=== PATIENT | male | born 1995 | race Two or more races ===

== ENCOUNTER 2016-09-02 00:41 | Emergency (ER) | payer SELFPAY ==
[2016-09-02] MEDS ORDERED: OXYCODONE-ACETAMINOPHEN 5-325 MG TABLET PO ONE (02:23)
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
[2016-09-02] MEDS ORDERED: HYDROCODONE/ACETAMINOPHEN 5-325 MG TABLET PO ONE (04:04)
[2016-09-02] MEDS ORDERED: LIDOCAINE 1% INJ-PF (10 MG/ML) 30 ML SDV INJ ONE (04:04)
[2016-09-02] MEDS ORDERED: DIPH/PERTUSS(ACELL)/TETANUS VAC/PF 0.5 ML SYR (>=10YO) IM ONE (04:06)
[2016-09-02] MEDS ORDERED: HYDROCODONE/ACETAMINOPHEN 5-325 MG 6 TAB/DSPK PO PRN (05:20)
[2016-09-02 05:57] VITALS: BP 144/78
== END 2016-09-02 05:55 | disposition home or self-care (01) ==
LOC: ER 00:41
PROC: 08QPXZZ Repair Left Upper Eyelid, External Approach (ICD-10-PCS; principal; 2016-09-02)
DX: S01.112A Laceration without foreign body of left eyelid and periocular area, initial encounter (principal); Y04.2XXA Assault by strike against or bumped into by another person, initial encounter
CPT/HCPCS: 12011; 99284; 90471; 70486; 90715; J3490

== ENCOUNTER 2016-09-07 12:20 | Emergency (ER) | payer SELFPAY ==
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
[2016-09-07 13:05] VITALS: BP 135/68
== END 2016-09-07 13:09 | disposition home or self-care (01) ==
LOC: ER 12:20
DX: Z48.02 Encounter for removal of sutures (principal)

== ENCOUNTER 2016-09-08 13:28 | Emergency (ER) | payer SELFPAY ==
[2016-09-08 13:59] VITALS: BP 135/72
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
== END 2016-09-08 14:46 | disposition home or self-care (01) ==
LOC: ER 13:28
DX: H43.392 Other vitreous opacities, left eye (principal)
CPT/HCPCS: 99283

== ENCOUNTER 2016-11-08 17:43 | Emergency (ER) | payer SELFPAY ==
[2016-11-08] MEDS ORDERED: FENTANYL CITRATE INJ/PF 100 MCG/2 ML AMPUL ONE (18:05)
[2016-11-08] MEDS ORDERED: ONDANSETRON HCL INJ/PF 4 MG/2 ML SDV ONE (18:18)
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
[2016-11-08 18:33] VITALS: BP 150/86
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
[2016-11-08 19:19] LABS: ABSOLUTE BASOPHILS # (AUTO) 0.1 10^3/uL (0.0-0.2); ABSOLUTE EOSINOPHILS # (AUTO) 0.1 10^3/uL (0.0-0.6); ABSOLUTE LYMPHOCYTES (AUTO) 4.2 10^3/uL (0.5-4.7); ABSOLUTE MONOCYTES (AUTO) 0.6 10^3/uL (0.1-1.4); BASOPHILS % (AUTO) 0.4 % (0-2); HEMATOCRIT 39.2 % (37.9-51.0); HEMOGLOBIN 13.2 g/dL (13.5-17.0); HGB HCT DIFFERENCE 0.4; LYMPHOCYTES % (AUTO) 32.2 % (13-45); MEAN CORPUSCULAR HEMOGLOBIN 30.4 pg (27.0-33.4); MEAN CORPUSCULAR HGB CONC 33.6 g/dL (32.0-36.0); MEAN CORPUSCULAR VOLUME 91 fl (80-97); MONOCYTES % (AUTO) 4.3 % (3-13); RED BLOOD COUNT 4.33 10^6/uL (4.35-5.55); RED CELL DISTRIBUTION WIDTH 12.7 % (11.5-14.0); SEGMENTED NEUTROPHILS % (AUTO) 62.1 % (42-78); WHITE BLOOD COUNT 12.9 10^3/uL (4.0-10.5)
[2016-11-08 19:28] LABS: ALANINE AMINOTRANSFERASE 718 U/L (21-72); ALBUMIN 3.4 g/dL (3.5-5.0); ALKALINE PHOSPHATASE 96 U/L (38-126); ANION GAP 10 (5-19); BILIRUBIN,DIRECT 0.3 mg/dL (0.0-0.4); BILIRUBIN,TOTAL 0.4 mg/dL (0.2-1.3); BLOOD UREA NITROGEN 14 mg/dL (7-20); CALCIUM 8.3 mg/dL (8.4-10.2); CARBON DIOXIDE 23 mmol/L (22-30); CHLORIDE 107 mmol/L (98-107); CREATININE RESULT 1.35 mg/dL (0.52-1.25); GLUCOSE 165 mg/dL (75-110); POTASSIUM 3.7 mmol/L (3.6-5.0); SODIUM 140.1 mmol/L (137-145); TOTAL PROTEIN 5.8 g/dL (6.3-8.2)
[2016-11-08 19:30] LABS: ALCOHOL < 10 mg/dL (NONE DETECTED); CREATINE KINASE 414 U/L (55-170); LIPASE 323.5 U/L (23-300)
[2016-11-08 19:33] LABS: PROTHROMBIN TIME 13.2 SEC (11.4-15.4)
[2016-11-08 19:34] LABS: ASPARTATE AMINO TRANSFERASE 748 U/L (17-59)
[2016-11-08 19:36] LABS: D-DIMER 3.75 ug/mL (0.00-0.50)
[2016-11-08 19:37] LABS: CREATINE KINASE MB 1.67 ng/mL (<4.55)
== END 2016-11-08 18:40 | disposition short-term general hospital (02) ==
LOC: ER 17:43
DX: S72.351B Displaced comminuted fracture of shaft of right femur, initial encounter for open fracture type I or II (principal); S82.391B Other fracture of lower end of right tibia, initial encounter for open fracture type I or II; S82.451B Displaced comminuted fracture of shaft of right fibula, initial encounter for open fracture type I or II; V29.9XXA Motorcycle rider (driver) (passenger) injured in unspecified traffic accident, initial encounter
CPT/HCPCS: 36415; 71010; 80053; 80307; 82550; 82553; 83690; 83880; 85025; 85379; 85610; 86850; 86900; 86901; 99291

== ENCOUNTER 2017-07-06 14:56 | Emergency (ER) | payer SELFPAY ==
[2017-07-06] MEDS ORDERED: IBUPROFEN 800 MG TABLET PO ONE (16:05)
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
[2017-07-06 16:47] LABS: ABSOLUTE EOSINOPHILS # (AUTO) 0.1 10^3/uL (0.0-0.6); ABSOLUTE LYMPHOCYTES (AUTO) 1.5 10^3/uL (0.5-4.7); ABSOLUTE MONOCYTES (AUTO) 0.9 10^3/uL (0.1-1.4); ABSOLUTE NEUT (AUTO) 6.1 10^3/uL (1.7-8.2); BASOPHILS % (AUTO) 0.3 % (0-2); EOSINOPHILS % (AUTO) 0.7 % (0-6); HEMOGLOBIN 16.4 g/dL (13.5-17.0); LYMPHOCYTES % (AUTO) 17.1 % (13-45); MEAN CORPUSCULAR HEMOGLOBIN 29.2 pg (27.0-33.4); MEAN CORPUSCULAR HGB CONC 34.1 g/dL (32.0-36.0); MEAN CORPUSCULAR VOLUME 86 fl (80-97); MONOCYTES % (AUTO) 10.5 % (3-13); PLATELET COUNT 259 10^3/uL (150-450); RED CELL DISTRIBUTION WIDTH 14.4 % (11.5-14.0); SEGMENTED NEUTROPHILS % (AUTO) 71.4 % (42-78); TOTAL CELLS COUNTED % (AUTO) 100 %; WHITE BLOOD COUNT 8.6 10^3/uL (4.0-10.5)
[2017-07-06] MEDS ORDERED: HYDROCODONE/ACETAMINOPHEN 5-325 MG TABLET PO ONE (16:58)
[2017-07-06 17:10] LABS: ANION GAP 9 (5-19); BLOOD UREA NITROGEN 13 mg/dL (7-20); CALCIUM 9.6 mg/dL (8.4-10.2); CARBON DIOXIDE 27 mmol/L (22-30); CHLORIDE 106 mmol/L (98-107); GLUCOSE 81 mg/dL (75-110); POTASSIUM 4.3 mmol/L (3.6-5.0); SODIUM 141.7 mmol/L (137-145)
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
[2017-07-06 20:14] VITALS: BP 124/70
== END 2017-07-06 20:12 | disposition home or self-care (01) ==
LOC: ER 14:56
DX: M61.9 Calcification and ossification of muscle, unspecified (principal); M79.651 Pain in right thigh; M79.89 Other specified soft tissue disorders
CPT/HCPCS: 36415; 76882; 80048; 85025; 99284

== ENCOUNTER 2017-10-05 11:12 | Emergency (ER) | payer SELFPAY ==
[2017-10-05] MEDS ORDERED: ACETAMINOPHEN 325 MG TABLET PO ONE (11:28)
[2017-10-05] MEDS ORDERED: ONDANSETRON 4 MG TAB.RAPDIS PO ONE (11:28)
--- NOTE | 2017-10-05 11:30 | ER Document Report ---
ED Medical Screen (RME) - General Chief Complaint: Leg Pain Stated Complaint: RIGHT LEG PAIN/VOMITING Time Seen by Provider: 10/05/17 11:27 Notes: RAPID MEDICAL EVALUATION DISCLOSURE I have seen this patient as part of a Rapid Medical Evaluation and, if applicable, placed any initially appropriate orders. The patient will be seen and fully evaluated, including a full history and physical exam, by a provider ( in Main ED or Fast Track) when a room becomes available. 22-year-old male PMH pancreatitis here with complaints of nausea vomiting several episodes since yesterday (without abdominal pain or diarrhea). He is not tried taking anything for his symptoms. He has a history of pancreatitis in the past after "a stent procedure" in his abdomen. He also complains of some right leg pain ongoing for the past day or so but denies any traumatic injury/impact. He does have a history of leg fractures and states "I have rods in my entire right leg". EXAM No abdominal TTP Minimal TTP of distal right tibia without overlying skin changes TRAVEL OUTSIDE OF THE [place] IN LAST 30 DAYS: No - Related Data Allergies/Adverse Reactions: No Known Allergies Allergy (Verified 10/05/17 11:13) Past Medical History Renal/ Medical History: Denies: Hx Peritoneal Dialysis Past Surgical History: Reports: Hx Abdominal Surgery, Hx Orthopedic Surgery Physical Exam - Vital signs Vitals: Temp Pulse Resp BP Pulse Ox 98.4 F 92 20 139/66 H 98 10/05/17 11:20 10/05/17 11:20 10/05/17 11:20 10/05/17 11:20 10/05/17 11:20 Course - Vital Signs Vital signs: Temp Pulse Resp BP Pulse Ox 98.4 F 92 20 139/66 H 98 10/05/17 11:20 10/05/17 11:20 10/05/17 11:20 10/05/17 11:20 10/05/17 11:20
[2017-10-05 12:39] LABS: ABSOLUTE EOSINOPHILS # (AUTO) 0.1 10^3/uL (0.0-0.6); ABSOLUTE LYMPHOCYTES (AUTO) 1.1 10^3/uL (0.5-4.7); ABSOLUTE MONOCYTES (AUTO) 0.9 10^3/uL (0.1-1.4); ABSOLUTE NEUT (AUTO) 3.1 10^3/uL (1.7-8.2); BASOPHILS % (AUTO) 0.5 % (0-2); EOSINOPHILS % (AUTO) 1.1 % (0-6); HEMATOCRIT 48.2 % (37.9-51.0); HEMOGLOBIN 16.6 g/dL (13.5-17.0); LYMPHOCYTES % (AUTO) 20.9 % (13-45); MEAN CORPUSCULAR HEMOGLOBIN 29.9 pg (27.0-33.4); MEAN CORPUSCULAR HGB CONC 34.5 g/dL (32.0-36.0); MEAN CORPUSCULAR VOLUME 87 fl (80-97); PLATELET COUNT 196 10^3/uL (150-450); RED BLOOD COUNT 5.55 10^6/uL (4.35-5.55); RED CELL DISTRIBUTION WIDTH 13.5 % (11.5-14.0); SEGMENTED NEUTROPHILS % (AUTO) 59.5 % (42-78); TOTAL CELLS COUNTED % (AUTO) 100 %; WHITE BLOOD COUNT 5.2 10^3/uL (4.0-10.5)
--- NOTE | 2017-10-05 12:41 | RADIOLOGY REPORT (SQ) ---
EXAM DESCRIPTION: TIBIA FIBULA RIGHT COMPLETED DATE/TIME: 10/05/2017 12:14 pm REASON FOR STUDY: TTP, eval hardware placement at distal tibfib COMPARISON: 11/08/2016 NUMBER OF VIEWS: Two views. TECHNIQUE: Two radiographic images acquired of the right tibia and fibula to include the knee and an kle in at least one projection. LIMITATIONS: None. FINDINGS: MINERALIZATION: Normal. BONES: Nonunion fracture of the distal tibia, however there is an IM misti present with distal traversi ng screws. No hardware failure. No finding to suggest loosening. Old posttraumatic changes of the proximal and distal fibula. SOFT TISSUES: No obvious swelling or foreign body. OTHER: No other significant finding. IMPRESSION: No hardware failure or suggestion of infection. 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 TECHNICAL DOCUMENTATION: JOB ID: [id number] [employer]- All Rights Reserved Reading location - IP/workstation name: [email or web address]
[2017-10-05 12:59] LABS: ALANINE AMINOTRANSFERASE 91 U/L (21-72); ALKALINE PHOSPHATASE 168 U/L (38-126); ANION GAP 16 (5-19); ASPARTATE AMINO TRANSFERASE 327 U/L (17-59); BILIRUBIN,DIRECT 0.4 mg/dL (0.0-0.4); BILIRUBIN,TOTAL 0.4 mg/dL (0.2-1.3); BLOOD UREA NITROGEN 18 mg/dL (7-20); CALCIUM 9.8 mg/dL (8.4-10.2); CARBON DIOXIDE 22 mmol/L (22-30); CHLORIDE 105 mmol/L (98-107); GLUCOSE 78 mg/dL (75-110); POTASSIUM 4.2 mmol/L (3.6-5.0); SODIUM 142.8 mmol/L (137-145); TOTAL PROTEIN 8.3 g/dL (6.3-8.2)
[2017-10-05] MEDS ORDERED: KETOROLAC TROMETHAMINE 60 MG/2 ML SDV IM ONE (14:47)
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
[2017-10-05 15:51] VITALS: BP 136/85
== END 2017-10-05 15:35 | disposition home or self-care (01) ==
LOC: ER 11:12
DX: R79.89 Other specified abnormal findings of blood chemistry (principal); M79.604 Pain in right leg; R11.2 Nausea with vomiting, unspecified
CPT/HCPCS: 99283; 96372; 36415; 83690; 85025; 80053; 73590; J1885; S0119

== ENCOUNTER 2017-10-06 06:42 | Emergency (ER) | payer SELFPAY ==
[2017-10-06 06:49] VITALS: BP 143/81
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
--- NOTE | 2017-10-06 07:57 | RADIOLOGY REPORT (SQ) ---
EXAM DESCRIPTION: CHEST 2 VIEWS COMPLETED DATE/TIME: 10/06/2017 7:35 am REASON FOR STUDY: cough/congestion COMPARISON: AP chest 11/08/2016 EXAM PARAMETERS: NUMBER OF VIEWS: two views TECHNIQUE: Digital Frontal and Lateral radiographic views of the chest acquired. RADIATION DOSE: NA LIMITATIONS: none FINDINGS: LUNGS AND PLEURA: Trace right pleural fluid. No left pleural effusion. No focal infiltrates. No pneumothorax. MEDIASTINUM AND HILAR STRUCTURES: No masses or contour abnormalities. HEART AND VASCULAR STRUCTURES: Heart normal size. No evidence for failure. BONES: No acute findings. HARDWARE: None in the chest. OTHER: No other significant finding. IMPRESSION: Trace right pleural effusion in the lateral and posterior costophrenic sulci. Otherwise unremarkable study. TECHNICAL DOCUMENTATION: JOB ID: [id number] [employer]- All Rights Reserved Reading location - IP/workstation name: [email or web address]
== END 2017-10-06 08:32 | disposition home or self-care (01) ==
LOC: ER 06:42
DX: R09.81 Nasal congestion (principal); J90 Pleural effusion, not elsewhere classified; R05 Cough; R68.83 Chills (without fever); Z87.891 Personal history of nicotine dependence
CPT/HCPCS: 71046; 99283